=== PATIENT | male | born 1975 | race Two or more races ===

== ENCOUNTER 2021-02-07 13:46 | Emergency (ER) | payer SELFPAY ==
[~2021-02-07] VITALS: Ht 167.6 cm; Wt 97.5 kg
[2021-02-07 17:08] VITALS: BP 138/82
== END 2021-02-07 17:10 | disposition home or self-care (01) ==
LOC: ER 13:46
DX: S30.21XA Contusion of penis, initial encounter (principal); X58.XXXA Exposure to other specified factors, initial encounter; Y93.89 Activity, other specified; Y92.89 Other specified places as the place of occurrence of the external cause; Y99.8 Other external cause status